=== PATIENT | female | born 1960 | race Caucasian/White ===

== ENCOUNTER 2025-01-18 14:42 | Emergency (ER) | payer SELFPAY ==
[~2025-01-18] VITALS: Ht 162.6 cm; Wt 49.0 kg
[2025-01-18 14:46] VITALS: BP 170/96; PULSE 105; RESP 16; TEMP 98.2; O2SAT 98
--- NOTE | 2025-01-18 17:21 | RADIOLOGY REPORT ---
CLINICAL HISTORY: Kicked by horse, no LOC TECHNIQUE: Helical scanning was performed of the head from the skull base to the vertex. Multiplanar reconstructions were performed. This exam was performed according to our departmental dose optimizat ion program. Up-to-date CT equipment and radiation dose reduction techniques are utilized as appropri ate. CTDI 53.8 DLP 930.3 COMPARISON: None FINDINGS: There is no evidence for acute intracranial hemorrhage, acute ischemic changes, mass, mass effect, or extra-axial fluid collection. There is no hydrocephalus or midline shift. There is no effacement of the cerebral sulci and basal subarachnoid cisterns. The west-white matter differentiation is well domenic ntained. 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 The imaged paranasal sinuses demonstrate a left matrix mucus retention cyst. IMPRESSION: NO ACUTE INTRACRANIAL ABNORMALITY SEEN.
--- NOTE | 2025-01-18 17:41 | Physician Documentation ---
History of Present Illness ~ Chief Complaint: Head Injury Stated Complaint: HEAD INJURY Time Seen by MD: 15:52 OK to notify your PCP?: Yes HPI Patient is a 64-year-old female that reports to the emergency department for evaluation of a head wound sustained after getting a kicked in the head from a horse she was chewing earlier today. Patient reports that the horses Health was in a bent position so did not get the full velocity but the horse did kick her in the head which caused some feeding. Patient reports that the injury was sustained approximately 4 hours ago. Patient denies any loss of consciousness denies neck or back pain her only complaint currently is a headache. Patient denies visual changes blurriness lightheaded nausea vomiting or any other symptoms at this time. Patient is not on blood thinners. Tetanus within 5 years?: Yes Medication Reconciliation Allergies: Coded Allergies: Penicillins (Verified Allergy, Unknown, 01/18/25) Sulfa (Sulfonamide Antibiotics) (Verified Allergy, Unknown, 01/18/25) Review of Systems ROS As stated above in the HPI, otherwise all systems are reviewed and negative. Physical Exam Vital Signs: Temperature: 98.2, Heart Rate: 105, Respiratory Rate: 16, BP: 170/96, Pulse Oximetry: 98, Weight: 49.050 Physical Exam VITALS: Reviewed and as above. GENERAL: Alert, no apparent distress. HEENT: Normocephalic, atraumatic, PERRL, EOMI, dry mucosa, no erythema RESPIRATORY: Lungs clear, normal breath sounds, no respiratory distress. CHEST: No accessory muscle use, no retractions CV: Regular rate, rhythm, no edema, no murmur, No: JVD GI: Soft, non-tender, bowels sounds present, no rebound, guarding, or rigidity BACK: No CVA tenderness, or swelling MUSCULOSKELETAL No deformities, small area of abrasion noted to the parietal area of the patient's skull. SKIN: Warm and dry, no rash, small area of abrasion to the parietal area of the skull. NEURO: Oriented x4, No motor or sensory deficit PSYCH: Normal mood and affect, no agitation Progress Results/Orders Results/Orders Orders - MARCY TORO [employer] Ct Head (01/18/25 15:52) Completed Orders - MARCY TORO [employer] Ct Head (01/18/25 15:52) Vital Signs 01/18/25 14:46 Temp 98.2 Pulse 105 Resp 16 B/P (MAP) 170/96 Pulse Ox 98 Medical Decision Making Findings Given work up, exam, and history low suspicion for intracranial hemorrhage or trauma, carotid or vertebral artery dissection, intrathoracic trauma (pulmonary contusion, blunt cardiac trauma, pneumothorax, hemothorax, cardiac tamponade, rib fractures), intra abdominal trauma (no liver, spleen, or renal lacerations, doubt hollow viscus injury given soft abdomen on repeat exams, no free air seen, consistently normotensive), extremity fracture, extremity dislocation, compartment syndrome. Patient will follow up with her primary care provider. Patient will return to the emergency department if she has any worsening or recurrent symptoms or any additional concerning symptoms that we discussed here today i.e. increased headache vision changes nausea vomiting lightheadedness mentation changes or any other concerning symptoms. Differential Dx:Considerations: Include: Closed head injury, Cervical spine injury, Skull facture, Fracture, Abrasion, Contusion, Foreign body, Laceration, Intoxication-alcohol, Intoxication-other drug, Substance abuse disorder, Pers onality disorder, Non-accidental trauma, Other Departure Disposition: 01 HOME / SELF CARE / HOMELESS Impression: Primary Impression: Injury of head Additional Impressions: Abrasion Headache Edema Discharge Instructions: Head Injuries, Adult Additional Instructions: Given work up, exam, and history low suspicion for intracranial hemorrhage or trauma, carotid or vertebral artery dissection, intrathoracic trauma (pulmonary contusion, blunt cardiac trauma, pneumothorax, hemothorax, cardiac tamponade, rib fractures), intra abdominal trauma (no liver, spleen, or renal lacerations, doubt hollow viscus injury given soft abdomen on repeat exams, no free air seen, consistently normotensive), extremity fracture, extremity dislocation, compar tment syndrome. Patient will follow up with her primary care provider. Patient will return to the emergency department if she has any worsening or recurrent symptoms or any additional concerning symptoms that we discussed here today i.e. increased headache vision changes nausea vomiting lightheadedness mentation changes or any other concerning symptoms. Tylenol and ibuprofen as needed for discomfort. Follow up with her primary care provider. Please return to the emergency department if you have any worsening or recurrent symptoms or any additional concerning symptoms that we discussed here today. Referrals: NO PRIMARY CARE PROVIDER (PCP) Education Educated: Patient Educated regarding: diagnosis, treatment, need for follow up Signature Scribe Signature: A Attestation: Scribed for Marcy Toro by JAYSHREE Adorno . 01/18/25 17:44 MARCY TORO Jan 18, 2025 17:41
== END 2025-01-18 17:54 | disposition home or self-care (01) ==
LOC: ER 14:43
DX: S00.81XA Abrasion of other part of head, initial encounter (principal); Z88.0 Allergy status to penicillin; Z88.2 Allergy status to sulfonamides; W55.12XA Struck by horse, initial encounter; Y93.89 Activity, other specified; Y92.89 Other specified places as the place of occurrence of the external cause; Y99.8 Other external cause status
CPT/HCPCS: 70450; 99284